=== PATIENT | female | born 1970 | race Caucasian/White ===

== ENCOUNTER 2018-08-05 12:24 | Outpatient (CLI) | payer MEDICAID | END 2018-08-05 12:25 | disposition home or self-care (01) | LOC: RAD 12:24 ==

== ENCOUNTER 2018-08-22 12:04 | Outpatient (CLI) | payer MEDICAID | END 2018-08-22 12:05 | disposition home or self-care (01) | LOC: RAD 12:04 | DX: R26.2 Difficulty in walking, not elsewhere classified (principal); M25.571 Pain in right ankle and joints of right foot ==

== ENCOUNTER 2018-09-10 10:07 | Outpatient (CLI) | payer MEDICAID | END 2018-09-10 10:08 | disposition home or self-care (01) | LOC: RAD 10:07 ==

== ENCOUNTER 2018-10-11 11:14 | Outpatient (CLI) | payer MEDICAID | END 2018-10-11 11:15 | disposition home or self-care (01) | LOC: RAD 11:14 ==